=== PATIENT | female | born 1975 | race Two or more races ===

== ENCOUNTER 2020-02-11 06:00 | Day surgery (SDC) | payer OTHER ==
[~2020-02-11] VITALS: Ht 167.6 cm; Wt 62.6 kg
[~2020-02-11 06:00] MED LIST: TENORMIN100 M1 PO
== END 2020-02-11 13:00 | disposition home or self-care (01) ==
LOC: CIR.AMB 06:00 → SURH 07:00 → EDSTATUS 07:00 → SURH 08:45 → CIR.AMB 13:00 → O/R 15:10
PROVIDERS: ATTEND Surgery
DX: E04.1 Nontoxic single thyroid nodule (principal); E06.3 Autoimmune thyroiditis; Z20.828 Contact with and (suspected) exposure to other viral communicable diseases